=== PATIENT | male | born 1935 | race Caucasian/White ===

== ENCOUNTER → 2020-01-12 | Outpatient (CLI) | payer BC, OTHER ==
[~2020-01-12] MED LIST: CENTRUM SILVER1 EAC2 PO; LEVOTHYROXIN0.112 M1 PO; TRICOR145 MG PO; ZESTRIL20 MG PO
== END ==
LOC: SJCVC 10:27
DX: I47.1 Supraventricular tachycardia (principal); I95.1 Orthostatic hypotension; I10 Essential (primary) hypertension; E78.5 Hyperlipidemia, unspecified

== ENCOUNTER → 2021-08-07 | Outpatient (CLI) | payer BC, OTHER | LOC: SJCVC 16:38 | PROVIDERS: ATTEND Internal Medicine | DX: I47.1 Supraventricular tachycardia (principal); I95.1 Orthostatic hypotension; I10 Essential (primary) hypertension; E78.5 Hyperlipidemia, unspecified; R00.2 Palpitations; E03.9 Hypothyroidism, unspecified; Z85.46 Personal history of malignant neoplasm of prostate; Z79.899 Other long term (current) drug therapy; Z82.49 Family history of ischemic heart disease and other diseases of the circulatory system ==